=== PATIENT | female | born 1965 | race African-American/Black ===

== ENCOUNTER 2021-08-16 19:02 | Emergency (ER) | payer MEDICAID ==
[~2021-08-16] VITALS: Ht 165.1 cm; Wt 54.4 kg
[~2021-08-16 19:02] MED LIST: HYDR-1421
[2021-08-16 21:00] VITALS: BP 111/76
== END 2021-08-16 21:44 | disposition home or self-care (01) ==
LOC: EDUNIT# 19:02 → EDBD 19:02 → ER 19:07
DX: S06.0X9A Concussion with loss of consciousness of unspecified duration, initial encounter (principal); F12.10 Cannabis abuse, uncomplicated; M25.512 Pain in left shoulder; W18.09XA Striking against other object with subsequent fall, initial encounter; Y93.89 Activity, other specified; Y92.89 Other specified places as the place of occurrence of the external cause; Y99.8 Other external cause status
CPT/HCPCS: 70450